=== PATIENT | female | born 1935 | race Hispanic/Latino ===

== ENCOUNTER 2018-08-19 14:45 | Emergency (ER) | payer MEDICAID | END 2018-08-19 16:30 | disposition home or self-care (01) | LOC: ERS 14:45 | DX: H60.92 Unspecified otitis externa, left ear (principal) | CPT/HCPCS: 99282 ==

== ENCOUNTER 2018-09-07 11:21 | Emergency (ER) | payer MEDICAID, SELFPAY | END 2018-09-07 13:00 | disposition home or self-care (01) | LOC: ERS 11:21 | DX: H60.91 Unspecified otitis externa, right ear (principal); I10 Essential (primary) hypertension; Z79.84 Long term (current) use of oral hypoglycemic drugs; Z79.899 Other long term (current) drug therapy | CPT/HCPCS: 99282 ==

== ENCOUNTER 2020-05-19 08:07 | Outpatient (CLI) | payer BC ==
--- NOTE | 2020-05-19 09:48 | BD ---
DEXA BONE MINERAL DENSITY STUDY: HISTORY: Osteoporosis screening. COMPARISON: None. FINDINGS: Lumbar Spine: BMD (g/cm2) L1 0.792 T-Score: -1.8 0.7 L2 0.710 T-Score: -2.9 -0.1 L3 0.819 T-Score: -2.4 0.6 L4 0.940 T-Score: -1.1 2.0 L1-L4 0.818 T-Score: -2.1 0.8 Femoral Neck: 0.535 T-Score: -2.8 -0.4 Total Femur: 0.749 T-Score: -1.6 0.7 WHO classification: Osteoporosis. Impression: Osteoporosis with elevated fracture risk. POS: [facility]
== END 2020-05-19 08:08 | disposition home or self-care (01) ==
LOC: BICMAMMO 08:07
PROVIDERS: ATTEND Family Medicine
DX: M81.0 Age-related osteoporosis without current pathological fracture (principal); Z87.39 Personal history of other diseases of the musculoskeletal system and connective tissue
CPT/HCPCS: 77080

== ENCOUNTER 2020-10-13 14:16 | Outpatient (CLI) | payer BC | END 2020-10-13 14:17 | disposition home or self-care (01) | LOC: BICRAD 14:16 | PROVIDERS: ATTEND Family Medicine | DX: M54.2 Cervicalgia (principal); M25.511 Pain in right shoulder; M47.812 Spondylosis without myelopathy or radiculopathy, cervical region | CPT/HCPCS: 72040 ==

== ENCOUNTER 2020-11-09 10:48 | Outpatient (CLI) | payer BC ==
[2020-11-09 21:09] LABS: SARS-CoV-2 PCR by NAA Not Detected (NotDetected)
== END 2020-11-09 10:49 | disposition home or self-care (01) ==
LOC: LABBT 10:48
PROVIDERS: ATTEND Internal Medicine Gastroenterology
DX: Z01.812 Encounter for preprocedural laboratory examination (principal); Z20.822 Contact with and (suspected) exposure to COVID-19; R10.9 Unspecified abdominal pain; R19.7 Diarrhea, unspecified
CPT/HCPCS: 87635; U0003; U0005

== ENCOUNTER 2020-11-12 07:05 | Day surgery (SDC) | payer BC ==
[2020-11-11 15:36] VITALS: BMI 30.1
[2020-11-12] MEDS ORDERED: Fentanyl 100 MCG/2 ML VIAL ONE (08:52)
[2020-11-12] MEDS ORDERED: PROPOFOL 200 MG/20 ML VIAL ONE (09:09)
== END 2020-11-12 10:35 | disposition home or self-care (01) ==
LOC: SDC 07:05
PROVIDERS: ATTEND Internal Medicine Gastroenterology
PROC: 0DJD8ZZ Inspection of Lower Intestinal Tract, Via Natural or Artificial Opening Endoscopic (ICD-10-PCS; principal; 2020-11-12)
PROC: 0DB58ZX Excision of Esophagus, Via Natural or Artificial Opening Endoscopic, Diagnostic (ICD-10-PCS; principal; 2020-11-12)
DX: K52.9 Noninfective gastroenteritis and colitis, unspecified (principal); K64.9 Unspecified hemorrhoids; K29.50 Unspecified chronic gastritis without bleeding; K29.80 Duodenitis without bleeding; K44.9 Diaphragmatic hernia without obstruction or gangrene; I10 Essential (primary) hypertension; E11.9 Type 2 diabetes mellitus without complications; G47.30 Sleep apnea, unspecified; J30.9 Allergic rhinitis, unspecified; M81.0 Age-related osteoporosis without current pathological fracture; Z79.83 Long term (current) use of bisphosphonates; Z79.84 Long term (current) use of oral hypoglycemic drugs; Z79.899 Other long term (current) drug therapy
CPT/HCPCS: 88305; J2704; J3010